=== PATIENT | female | born 1950 | race African-American/Black ===

== ENCOUNTER 2018-05-14 08:49 | Inpatient (IN) | payer OTHER ==
[2018-05-06 15:53] LABS: BASOPHILS # (AUTO) 0.2 K/uL (0.0-0.2); BASOPHILS % (AUTO) 2.2 % (0.0-2.0); EOSINOPHILS # (AUTO) 0.1 K/uL (0.0-0.4); HEMATOCRIT 32.9 % (36-48); HEMOGLOBIN 11.1 g/dL (12.0-16.0); LYMPHOCYTES # (AUTO) 3.5 K/uL (1.0-5.5); LYMPHOCYTES % (AUTO) 46.4 % (20.5-51.5); MEAN CORPUSCULAR HEMOGLOBIN 34 pg (27-31); MEAN CORPUSCULAR HGB CONC 34 % (32-36); MEAN CORPUSCULAR VOLUME 102 fL (79.0-98.0); MONOCYTES # (AUTO) 0.6 K/uL (0.0-1.0); MONOCYTES % (AUTO) 8.1 % (1.7-9.3); NEUTROPHILS # (AUTO) 3.3 K/uL (1.8-7.7); NEUTROPHILS % (AUTO) 42.3 % (40.0-70.0); PLATELET COUNT (AUTO) 346 K/uL (130-430); RED BLOOD CELL COUNT(AUTO) 3.23 MIL/uL (4.2-6.2); RED CELL DISTRIBUTION WIDTH 15.5 % (9.0-15.0); WHITE BLOOD COUNT (AUTO) 7.7 K/uL (4.8-10.8)
[2018-05-06 16:00] LABS: CALCIUM 9.3 mg/dL (8.4-11.0); CREATININE 1.49 mg/dL (0.55-1.30); POTASSIUM 3.3 mmol/L (3.5-5.1)
[2018-05-06 16:14] LABS: BILIRUBIN,URINE NEGATIVE (NEGATIVE); BLOOD, URINE NEGATIVE (NEGATIVE); CLARITY/URINE CLEAR (CLEAR); COLOR,URINE YELLOW (YELLOW); GLUCOSE,URINE NEGATIVE (NEGATIVE); KETONES,URINE NEGATIVE (NEGATIVE); LEUKOCYTE ESTERASE ,URINE NEGATIVE (NEGATIVE); NITRITE, URINE NEGATIVE (NEGATIVE); PROTEIN URINE NEGATIVE (NEGATIVE); UROBILINOGEN,URINE 0.2 (0.2-1.0)
[~2018-05-14] VITALS: Ht 170.2 cm; Wt 79.4 kg
[2018-05-14] VITALS (11 sets, daily range): BP systolic 94–128
[~2018-05-14 08:49] MED LIST: ALBMDI INH; ALLO100T PO; APIX5TAB4 PO; AZEL137S7; BIMA2.5D5 OP; BIOT25008 PO; CA/D1TAB7 PO; CLEVAG TP; CYCL-10 PO; DOCU250C14 PO; FERR140T PO; FURO-149 PO; HYDR-551 PO; HYDR100T25 PO; IRBE150T48 PO; L. A1CAP3 PO; LIDODERM 5% PATCH TD; LIP20 PO; METO25TA6 PO; MONT10TA25 PO; PATANOL OP; SENN-104 PO; TRAZ-126 PO; TRIA1TAB96 PO; VITA1CAP PO; VITD400 PO; [UNRECOGNIZED DRUG - CODE] PO; [UNRECOGNIZED DRUG - CODE] PO
[2018-05-14] MEDS ORDERED: VANCOMYCIN HCL 1,000 MG in NS 250 ML IV ONE (09:00)
[2018-05-14] MEDS ORDERED: TRANEXAMIC ACID 1,000 MG/10 ML VIAL IV ONE ×2 (09:00→14:25)
[2018-05-14] MEDS ORDERED: POLYMYXIN 500,000/BACIT.10,000 UNITS in NS IRR 1 L IR ONE (09:19)
[2018-05-14] MEDS ORDERED: ALBUTEROL SULFATE 0.083% 2.5 MG/3 ML VIAL.NEB INH ONE ×2 (10:00→10:13)
[2018-05-14] MEDS ORDERED: MORPHINE SULFATE 10MG/10ML PF AMP SP SCH (10:45)
[2018-05-14] MEDS ORDERED: NALBUPHINE HCL 10 MG/ML AMP IVP PRN (10:45)
[2018-05-14] MEDS ORDERED: fentaNYL CITRATE/PF 100 MCG/2 ML AMP IVP PRN ×2 (10:45)
[2018-05-14] MEDS ORDERED: NALOXONE HCL 0.4 MG/ML AMP (NARCAN) IVP PRN ×2 (10:45)
[2018-05-14] MEDS ORDERED: DIPHENHYDRAMINE INJ 50 MG/ML VIAL IVP PRN (10:45)
[2018-05-14] MEDS ORDERED: KETOROLAC TROMETHAMINE 60 MG/2 ML VIAL IM PRN (10:45)
[2018-05-14] MEDS ORDERED: ONDANSETRON HCL 4 MG/2 ML VIAL IVP PRN ×2 (10:45→14:45)
[2018-05-14] MEDS ORDERED: MORPHINE SULFATE 10MG/10ML PF AMP ONE (14:25)
[2018-05-14] MEDS ORDERED: PROPOFOL 200MG/ 20ML VIAL (DIPRIVAN) IV ONE (14:25)
[2018-05-14] MEDS ORDERED: LR 1,000 ML IV.SOLN IV ONE (14:25)
[2018-05-14] MEDS ORDERED: MIDAZOLAM HCL 5 MG/ML VIAL (VERSED) IV ONE (14:25)
[2018-05-14] MEDS ORDERED: ePHEDrine sulfate 50 MG/ML VIAL ONE (14:25)
[2018-05-14] MEDS ORDERED: DIPHENHYDRAMINE HCL 25 MG CAPSULE PO PRN (14:45)
[2018-05-14] MEDS ORDERED: ALBUTEROL SULFATE 0.083% 2.5 MG/3 ML VIAL.NEB INH SCH (14:45)
[2018-05-14] MEDS ORDERED: MILK OF MAGNESIA 30 ML UDC PO PRN (14:45)
[2018-05-14] MEDS ORDERED: TRAZ-126 PO (15:03)
[2018-05-14] MEDS: D5/0.45 NS 1,000 ML IV SCH (16:59)
[2018-05-14] MEDS ORDERED: TRANEXAMIC ACID 1,000 MG in NS 50 ML IV ONE (17:45)
[2018-05-14] MEDS: PATIENT'S OWN EENT SCH (21:00)
[2018-05-14] MEDS ORDERED: hydrALAZINE HCL 25 MG TABLET PO SCH (21:00)
[2018-05-14] MEDS ORDERED: POLY17PO4 PO (21:38)
[2018-05-14] MEDS ORDERED: GABA300S PO (21:38)
[2018-05-14] MEDS ORDERED: L. A1CAP3 PO (21:39)
[2018-05-14] MEDS ORDERED: OXYC10TA56 PO (21:40)
[2018-05-14] MEDS: METOPROLOL TARTRATE 25 MG TABLET PO SCH (21:50)
[2018-05-14] MEDS: SENNOSIDES 8.6 MG TABLET PO SCH (21:51)
[2018-05-14] MEDS: MONTELUKAST 10 MG TABLET PO SCH (21:51)
[2018-05-14] MEDS: traZODone HCL 50 MG TABLET (DESYREL) PO SCH (21:51)
[2018-05-14] MEDS: hydrALAZINE HCL 25 MG TABLET PO SCH (21:52)
[2018-05-14] MEDS: NAPHAZOLINE HCL/PHENIRAMINE 15 ML OPHT. DROPS OP SCH (21:53)
[2018-05-14] MEDS: HYDROcodone/ACETAMIN 10-325 MG TAB PO PRN (21:56)
[2018-05-15 01:02] VITALS: BP_SYST 115
[2018-05-15] MEDS: D5/0.45 NS 1,000 ML IV SCH ×2 (02:27→10:30)
[2018-05-15] MEDS: HYDROcodone/ACETAMIN 7.5-325 MG TAB PO PRN (02:28)
[2018-05-15 06:52] LABS: BASOPHILS % (AUTO) 0.1 % (0.0-2.0); EOSINOPHILS # (AUTO) 0.1 K/uL (0.0-0.4); EOSINOPHILS % (AUTO) 1.3 % (0.0-4.0); HEMATOCRIT 27.2 % (36-48); HEMOGLOBIN 8.9 g/dL (12.0-16.0); LYMPHOCYTES # (AUTO) 1.5 K/uL (1.0-5.5); MEAN CORPUSCULAR HEMOGLOBIN 34 pg (27-31); MEAN CORPUSCULAR HGB CONC 33 % (32-36); MEAN CORPUSCULAR VOLUME 104 fL (79.0-98.0); MONOCYTES # (AUTO) 0.6 K/uL (0.0-1.0); MONOCYTES % (AUTO) 8.6 % (1.7-9.3); NEUTROPHILS # (AUTO) 5.3 K/uL (1.8-7.7); PLATELET COUNT (AUTO) 245 K/uL (130-430); RED BLOOD CELL COUNT(AUTO) 2.63 MIL/uL (4.2-6.2); RED CELL DISTRIBUTION WIDTH 15.2 % (9.0-15.0); WHITE BLOOD COUNT (AUTO) 7.5 K/uL (4.8-10.8)
[2018-05-15 06:56] LABS: CALCIUM 8.3 mg/dL (8.4-11.0); CREATININE 1.1 mg/dL (0.55-1.30); POTASSIUM 4.2 mmol/L (3.5-5.1)
[2018-05-15] MEDS: HYDROcodone/ACETAMIN 10-325 MG TAB PO PRN ×3 (06:57→18:02)
[2018-05-15 08:00] VITALS: BP_SYST 132
[2018-05-15] MEDS: ALLOPURINOL 100 MG TABLET (ZYLOPRIM) PO SCH (08:44)
[2018-05-15] MEDS: DOCUSATE SODIUM 250 MG CAPSULE PO SCH ×2 (08:49→20:28)
[2018-05-15] MEDS: MULTIVITAMINS TAB 1 TABLET PO SCH (08:49)
[2018-05-15] MEDS: CHOLECALCIFEROL (VITAMIN D3) 2,000 UNIT TABLET PO SCH (08:50)
[2018-05-15] MEDS: MULTIVITS,CA,MINERALS/IRON/FA 1 TABLET PO SCH (08:51)
[2018-05-15] MEDS: ASCORBIC ACID 500 MG TABLET PO SCH ×2 (08:51→20:27)
[2018-05-15] MEDS: hydrALAZINE HCL 25 MG TABLET PO SCH ×2 (08:54→20:30)
[2018-05-15] MEDS: VITAMIN B COMPLEX 1 CAP/TAB PO SCH (08:56)
[2018-05-15] MEDS: LATANOPROST 2.5 ML DROPS (XALATAN) OP SCH (09:00)
[2018-05-15] MEDS ORDERED: CYCLOBENZAPRINE HCL 10 MG TABLET (FLEXERIL) PO SCH (09:00)
[2018-05-15] MEDS ORDERED: APIXABAN 2.5 MG TABLET PO SCH (09:00)
[2018-05-15] MEDS ORDERED: ATORVASTATIN 20 MG TABLET PO SCH (09:00)
[2018-05-15] MEDS: PATIENT'S OWN EENT SCH ×2 (09:00→20:56)
[2018-05-15] MEDS ORDERED: FUROSEMIDE 40 MG TABLET PO SCH (09:00)
[2018-05-15] MEDS: METOPROLOL TARTRATE 25 MG TABLET PO SCH ×2 (09:01→20:28)
[2018-05-15] MEDS: NAPHAZOLINE HCL/PHENIRAMINE 15 ML OPHT. DROPS OP SCH ×2 (09:02→21:00)
[2018-05-15 09:04] VITALS: BP_SYST 126
[2018-05-15] MEDS: SENNOSIDES/DOCUSATE SODIUM 1 TAB TABLET(SENOKOT-S) PO SCH (09:04)
[2018-05-15] MEDS: LOSARTAN POTASSIUM 50 MG TABLET (COZAAR) PO SCH (09:05)
[2018-05-15] MEDS: TRIAMTERENE/HYDROCHLOROTHIAZID 1 CAP CAPSULE (DYAZIDE37.5/25) PO SCH (09:07)
[2018-05-15] MEDS: LIDOCAINE PATCH 5% 1 EA TP SCH (09:08)
[2018-05-15] MEDS: POLYETHYLENE GLYCOL 3350, 17 GM/ POWD.PACK PO SCH (09:08)
[2018-05-15] MEDS: FERROUS SULFATE 140 MG TABLET.ER PO SCH (09:14)
[2018-05-15] MEDS ORDERED: NALOXONE HCL 0.4 MG/ML AMP (NARCAN) IVP PRN (10:45)
[2018-05-15] MEDS ORDERED: MORPHINE PCA 50 mg/50 mL NS IV PRN (10:45)
[2018-05-15 12:02] VITALS: BP_SYST 143
[2018-05-15] MEDS ORDERED: APIXABAN 2.5 MG TABLET PO ONE (14:45)
[2018-05-15 16:02] VITALS: BP_SYST 139
[2018-05-15 20:00] VITALS: BP_SYST 100
[2018-05-15] MEDS: MONTELUKAST 10 MG TABLET PO SCH (20:27)
[2018-05-15] MEDS: ATORVASTATIN 20 MG TABLET PO SCH (20:28)
[2018-05-15] MEDS: traZODone HCL 50 MG TABLET (DESYREL) PO SCH (20:29)
[2018-05-15] MEDS: APIXABAN 2.5 MG TABLET PO SCH (20:29)
[2018-05-15] MEDS: SENNOSIDES 8.6 MG TABLET PO SCH (20:29)
[2018-05-16] MEDS: HYDROcodone/ACETAMIN 10-325 MG TAB PO PRN ×4 (01:12→21:12)
[2018-05-16 02:26] VITALS: BP_SYST 144
[2018-05-16 07:29] LABS: BASOPHILS % (AUTO) 0.2 % (0.0-2.0); EOSINOPHILS % (AUTO) 0.3 % (0.0-4.0); HEMOGLOBIN 8.7 g/dL (12.0-16.0); MEAN CORPUSCULAR HEMOGLOBIN 32 pg (27-31); MEAN CORPUSCULAR HGB CONC 31 % (32-36); MEAN CORPUSCULAR VOLUME 101 fL (79.0-98.0); MONOCYTES # (AUTO) 1.1 K/uL (0.0-1.0); MONOCYTES % (AUTO) 9.3 % (1.7-9.3); NEUTROPHILS # (AUTO) 8.8 K/uL (1.8-7.7); NEUTROPHILS % (AUTO) 73.2 % (40.0-70.0); PLATELET COUNT (AUTO) 198 K/uL (130-430); RED BLOOD CELL COUNT(AUTO) 2.76 MIL/uL (4.2-6.2); RED CELL DISTRIBUTION WIDTH 14.9 % (9.0-15.0); WHITE BLOOD COUNT (AUTO) 11.9 K/uL (4.8-10.8)
[2018-05-16 07:30] VITALS: BP_SYST 130
[2018-05-16 07:43] LABS: CALCIUM 8.5 mg/dL (8.4-11.0); CREATININE 1.2 mg/dL (0.55-1.30); POTASSIUM 4.2 mmol/L (3.5-5.1)
[2018-05-16] MEDS: NAPHAZOLINE HCL/PHENIRAMINE 15 ML OPHT. DROPS OP SCH ×2 (08:46→21:12)
[2018-05-16] MEDS: LIDOCAINE PATCH 5% 1 EA TP SCH (08:46)
[2018-05-16] MEDS: DOCUSATE SODIUM 250 MG CAPSULE PO SCH ×2 (08:46→21:14)
[2018-05-16] MEDS: TRIAMTERENE/HYDROCHLOROTHIAZID 1 CAP CAPSULE (DYAZIDE37.5/25) PO SCH (08:47)
[2018-05-16] MEDS: MULTIVITAMINS TAB 1 TABLET PO SCH (08:47)
[2018-05-16] MEDS: MULTIVITS,CA,MINERALS/IRON/FA 1 TABLET PO SCH (08:47)
[2018-05-16] MEDS: ALLOPURINOL 100 MG TABLET (ZYLOPRIM) PO SCH (08:47)
[2018-05-16] MEDS: ASCORBIC ACID 500 MG TABLET PO SCH ×2 (08:48→21:13)
[2018-05-16] MEDS: hydrALAZINE HCL 25 MG TABLET PO SCH ×2 (08:49→21:15)
[2018-05-16] MEDS: CHOLECALCIFEROL (VITAMIN D3) 2,000 UNIT TABLET PO SCH (08:50)
[2018-05-16] MEDS: FERROUS SULFATE 140 MG TABLET.ER PO SCH (08:51)
[2018-05-16] MEDS: SENNOSIDES/DOCUSATE SODIUM 1 TAB TABLET(SENOKOT-S) PO SCH (08:51)
[2018-05-16] MEDS: LOSARTAN POTASSIUM 50 MG TABLET (COZAAR) PO SCH (08:52)
[2018-05-16] MEDS: VITAMIN B COMPLEX 1 CAP/TAB PO SCH (08:53)
[2018-05-16] MEDS: METOPROLOL TARTRATE 25 MG TABLET PO SCH ×2 (08:55→21:13)
[2018-05-16] MEDS: APIXABAN 2.5 MG TABLET PO SCH ×2 (08:56→21:14)
[2018-05-16] MEDS: HYDROcodone/ACETAMIN 7.5-325 MG TAB PO PRN (08:57)
[2018-05-16] MEDS: LATANOPROST 2.5 ML DROPS (XALATAN) OP SCH (08:59)
[2018-05-16] MEDS: POLYETHYLENE GLYCOL 3350, 17 GM/ POWD.PACK PO SCH (09:00)
[2018-05-16] MEDS: PATIENT'S OWN EENT SCH ×2 (09:00→21:00)
[2018-05-16 12:09] VITALS: BP_SYST 131
[2018-05-16 17:30] VITALS: BP_SYST 140
[2018-05-16 20:00] VITALS: BP_SYST 127
[2018-05-16] MEDS: SENNOSIDES 8.6 MG TABLET PO SCH (21:12)
[2018-05-16] MEDS: traZODone HCL 50 MG TABLET (DESYREL) PO SCH (21:13)
[2018-05-16] MEDS: ATORVASTATIN 20 MG TABLET PO SCH (21:13)
[2018-05-16] MEDS: MONTELUKAST 10 MG TABLET PO SCH (21:14)
[2018-05-17 00:20] VITALS: BP_SYST 124
[2018-05-17 06:51] LABS: CALCIUM 8.8 mg/dL (8.4-11.0); CREATININE 1.2 mg/dL (0.55-1.30); POTASSIUM 3.8 mmol/L (3.5-5.1)
[2018-05-17] MEDS: HYDROcodone/ACETAMIN 10-325 MG TAB PO PRN (06:52)
[2018-05-17 06:58] LABS: BASOPHILS % (AUTO) 0.2 % (0.0-2.0); EOSINOPHILS # (AUTO) 0.1 K/uL (0.0-0.4); EOSINOPHILS % (AUTO) 0.6 % (0.0-4.0); HEMATOCRIT 28.3 % (36-48); HEMOGLOBIN 9.3 g/dL (12.0-16.0); LYMPHOCYTES # (AUTO) 1.8 K/uL (1.0-5.5); LYMPHOCYTES % (AUTO) 17.1 % (20.5-51.5); MEAN CORPUSCULAR HEMOGLOBIN 33 pg (27-31); MEAN CORPUSCULAR HGB CONC 33 % (32-36); MEAN CORPUSCULAR VOLUME 102 fL (79.0-98.0); MONOCYTES % (AUTO) 9.8 % (1.7-9.3); NEUTROPHILS # (AUTO) 7.7 K/uL (1.8-7.7); NEUTROPHILS % (AUTO) 72.3 % (40.0-70.0); PLATELET COUNT (AUTO) 211 K/uL (130-430); RED BLOOD CELL COUNT(AUTO) 2.78 MIL/uL (4.2-6.2); RED CELL DISTRIBUTION WIDTH 14.4 % (9.0-15.0); WHITE BLOOD COUNT (AUTO) 10.6 K/uL (4.8-10.8)
[2018-05-17 08:00] VITALS: BP_SYST 112
[2018-05-17] MEDS: NAPHAZOLINE HCL/PHENIRAMINE 15 ML OPHT. DROPS OP SCH (08:50)
[2018-05-17] MEDS: LATANOPROST 2.5 ML DROPS (XALATAN) OP SCH (08:50)
[2018-05-17] MEDS: VITAMIN B COMPLEX 1 CAP/TAB PO SCH (08:51)
[2018-05-17] MEDS: CHOLECALCIFEROL (VITAMIN D3) 2,000 UNIT TABLET PO SCH (08:51)
[2018-05-17] MEDS: ALLOPURINOL 100 MG TABLET (ZYLOPRIM) PO SCH (08:52)
[2018-05-17] MEDS: MULTIVITAMINS TAB 1 TABLET PO SCH (08:52)
[2018-05-17] MEDS: hydrALAZINE HCL 25 MG TABLET PO SCH (08:53)
[2018-05-17] MEDS: DOCUSATE SODIUM 250 MG CAPSULE PO SCH (08:54)
[2018-05-17] MEDS: APIXABAN 2.5 MG TABLET PO SCH (08:54)
[2018-05-17] MEDS: ASCORBIC ACID 500 MG TABLET PO SCH (08:54)
[2018-05-17] MEDS: MULTIVITS,CA,MINERALS/IRON/FA 1 TABLET PO SCH (08:54)
[2018-05-17] MEDS: LOSARTAN POTASSIUM 50 MG TABLET (COZAAR) PO SCH (08:55)
[2018-05-17] MEDS: METOPROLOL TARTRATE 25 MG TABLET PO SCH (08:55)
[2018-05-17] MEDS: TRIAMTERENE/HYDROCHLOROTHIAZID 1 CAP CAPSULE (DYAZIDE37.5/25) PO SCH (08:56)
[2018-05-17] MEDS: SENNOSIDES/DOCUSATE SODIUM 1 TAB TABLET(SENOKOT-S) PO SCH (08:56)
[2018-05-17] MEDS: LIDOCAINE PATCH 5% 1 EA TP SCH (08:57)
[2018-05-17] MEDS: FERROUS SULFATE 140 MG TABLET.ER PO SCH (08:57)
[2018-05-17] MEDS: POLYETHYLENE GLYCOL 3350, 17 GM/ POWD.PACK PO SCH (08:57)
[2018-05-17] MEDS: PATIENT'S OWN EENT SCH (09:00)
[2018-05-17 12:43] VITALS: BP_SYST 121
[2018-05-17 15:28] VITALS: BP_SYST 126
[2018-05-17 16:33] VITALS: BP_SYST 122
[2018-05-17 17:05] VITALS: BP_SYST 122
== END 2018-05-17 18:47 | DRG 470 ==
LOC: SMU 08:49 → STU 05-15 07:49 → SMU 05-15 07:52 → STU 05-15 08:11 → SMU 05-15 21:34
PROVIDERS: ADMIT Orthopaedic Surgery; ATTEND Orthopaedic Surgery
PROC: 0SR901A Replacement of Right Hip Joint with Metal Synthetic Substitute, Uncemented, Open Approach (ICD-10-PCS; principal; 2018-05-14 11:30)
PROC: 30233N1 Transfusion of Nonautologous Red Blood Cells into Peripheral Vein, Percutaneous Approach (ICD-10-PCS; 2018-05-15)
PROC: 5A09357 Assistance with Respiratory Ventilation, Less than 24 Consecutive Hours, Continuous Positive Airway Pressure (ICD-10-PCS; 2018-05-15)
PROC: 5A09357 Assistance with Respiratory Ventilation, Less than 24 Consecutive Hours, Continuous Positive Airway Pressure (ICD-10-PCS; 2018-05-16)
DX: M16.11 Unilateral primary osteoarthritis, right hip (principal); F11.20 Opioid dependence, uncomplicated; I12.9 Hypertensive chronic kidney disease with stage 1 through stage 4 chronic kidney disease, or unspecified chronic kidney disease; M43.16 Spondylolisthesis, lumbar region; M47.816 Spondylosis without myelopathy or radiculopathy, lumbar region; N18.3 Chronic kidney disease, stage 3 (moderate); H40.9 Unspecified glaucoma; E66.01 Morbid (severe) obesity due to excess calories; G47.33 Obstructive sleep apnea (adult) (pediatric); M51.36 Other intervertebral disc degeneration, lumbar region; D64.9 Anemia, unspecified; I08.3 Combined rheumatic disorders of mitral, aortic and tricuspid valves; J45.909 Unspecified asthma, uncomplicated; K57.90 Diverticulosis of intestine, part unspecified, without perforation or abscess without bleeding; M10.9 Gout, unspecified; Z86.718 Personal history of other venous thrombosis and embolism; Z87.891 Personal history of nicotine dependence; Z90.710 Acquired absence of both cervix and uterus; Z90.49 Acquired absence of other specified parts of digestive tract; Z98.84 Bariatric surgery status; Z68.27 Body mass index [BMI] 27.0-27.9, adult; Z82.61 Family history of arthritis; Z84.1 Family history of disorders of kidney and ureter; Z88.0 Allergy status to penicillin
CPT/HCPCS: 36415; 71046-TC; 72170-TC; 73501; 73502; 80048; 81003; 83735-TC; 84132-TC; 85025; 86886; 86900; 86901; 86920; 87081; 88304; 88311; 90656; 93005; 94010; 94640; 94660; 94760; 97110-GP; 97116-GP; 97530-GP; C1776; J1885; J2250; J2274; J2704; J3370; J3490; J7042; J7050; J7120; J7613

== ENCOUNTER 2018-06-01 15:59 | Emergency (ER) | payer OTHER ==
[~2018-06-01] VITALS: Ht 170.2 cm; Wt 81.6 kg
[2018-06-01 15:59] VITALS: BP_SYST 116
[~2018-06-01 15:59] MED LIST changes: -CLEVAG TP; +GABA300S PO; +OXYC10TA56 PO; +POLY17PO4 PO
[2018-06-01] MEDS ORDERED: MORPHINE 4 MG/ML INJ. SYRINGE IVP ONE (16:15)
[2018-06-01 16:38] LABS: CALCIUM 9.2 mg/dL (8.4-11.0); CREATININE 1.58 mg/dL (0.55-1.30); POTASSIUM 3.6 mmol/L (3.5-5.1)
[2018-06-01 16:39] LABS: PROTHROMBIN TIME 9.9 SECS (9.5-12.5)
[2018-06-01 16:40] LABS: BASOPHILS # (AUTO) 0.1 K/uL (0.0-0.2); BASOPHILS % (AUTO) 1.3 % (0.0-2.0); EOSINOPHILS # (AUTO) 0.1 K/uL (0.0-0.4); EOSINOPHILS % (AUTO) 1.9 % (0.0-4.0); HEMATOCRIT 27.6 % (36-48); HEMOGLOBIN 8.9 g/dL (12.0-16.0); LYMPHOCYTES # (AUTO) 1.9 K/uL (1.0-5.5); LYMPHOCYTES % (AUTO) 30.2 % (20.5-51.5); MEAN CORPUSCULAR HEMOGLOBIN 32 pg (27-31); MEAN CORPUSCULAR HGB CONC 32 % (32-36); MEAN CORPUSCULAR VOLUME 100 fL (79.0-98.0); MONOCYTES # (AUTO) 0.7 K/uL (0.0-1.0); MONOCYTES % (AUTO) 11.6 % (1.7-9.3); NEUTROPHILS # (AUTO) 3.4 K/uL (1.8-7.7); PLATELET COUNT (AUTO) 589 K/uL (130-430); RED BLOOD CELL COUNT(AUTO) 2.77 MIL/uL (4.2-6.2); RED CELL DISTRIBUTION WIDTH 14.7 % (9.0-15.0); WHITE BLOOD COUNT (AUTO) 6.2 K/uL (4.8-10.8)
[2018-06-01 16:43] LABS: ALBUMIN 2.9 g/dL (3.4-4.8); TOTAL BILIRUBIN 0.2 mg/dL (0.0-1.0)
[2018-06-01] MEDS ORDERED: NACL 0.9% 1,000 ML IV ONE (17:15)
[2018-06-01 18:00] VITALS: BP_SYST 130
== END 2018-06-01 18:00 | disposition home or self-care (01) ==
LOC: SED 15:59
DX: M25.561 Pain in right knee (principal); D64.9 Anemia, unspecified; E86.0 Dehydration; N28.9 Disorder of kidney and ureter, unspecified; Z86.718 Personal history of other venous thrombosis and embolism; Z88.0 Allergy status to penicillin; Z88.8 Allergy status to other drugs, medicaments and biological substances; Z79.899 Other long term (current) drug therapy
CPT/HCPCS: 36415; 80053; 85025; 85610; 93970; 96361; 96374; 99284; J2270; J7030